=== PATIENT | female | born 1965 | race Caucasian/White ===

== ENCOUNTER 2018-05-25 10:53 | Observation (INO) | payer MEDICAID ==
[2018-05-24 14:43] LABS: BASOPHILS # (AUTO) 0.1 X10'3 (0-0.2); BASOPHILS % (AUTO) 0.8 % (0-1); EOSINOPHILS # (AUTO) 0.2 X10'3 (0-0.9); EOSINOPHILS % (AUTO) 2.3 % (0-6); LYMPHOCYTES # (AUTO) 1.1 X10'3 (1.1-4.8); LYMPHOCYTES % (AUTO) 16.4 % (21-51); MEAN CORPUSCULAR HEMOGLOBIN 27.3 PG (27.0-31.0); MEAN CORPUSCULAR HGB CONC 32.6 g/dL (33.0-36.5); MEAN CORPUSCULAR VOLUME 83.6 FL (78-98); MEAN PLATELET VOLUME 9.4 FL (7.4-10.4); MONOCYTES # (AUTO) 0.6 X10'3 (0-0.9); MONOCYTES % (AUTO) 9.5 % (2-12); NEUTROPHILS # (AUTO) 4.8 X10'3 (1.8-7.7); PRE OP HEMATOCRIT 43.6 % (35.0-45.0); PRE OP HEMOGLOBIN 14.2 g/dL (12.0-16.0); PRE OP PLATELET COUNT 232 X10'3 (140-440); RED BLOOD COUNT 5.21 X10'6 (4.20-5.60); RED CELL DISTRIBUTION WIDTH 15.2 % (11.5-14.5)
[2018-05-24 15:03] LABS: ALBUMIN 3.6 G/DL (3.4-5.0); ALBUMIN/GLOBULIN RATIO 0.9 (1.1-1.5); ALKALINE PHOSPHATASE 89 IU/L (46-116); BLOOD UREA NITROGEN 10 MG/DL (7-18); BUN/CREATININE RATIO 11.1 (6.6-38.0); CALCIUM 9.1 MG/DL (8.5-10.1); CHLORIDE 104 MMOL/L (99-107); PRE OP ALT 43 U/L (30-65); PRE OP ANION GAP 9 (8-16); PRE OP AST 23 U/L (10-37); PRE OP BILIRUB, TOTAL 0.4 MG/DL (0.0-1.0); PRE OP GLUCOSE 123 MG/DL (70-104); PRE OP SODIUM 141 MMOL/L (135-145); TOTAL CARBON DIOXIDE 28.4 MMOL/L (24-32); TOTAL PROTEIN 7.7 G/DL (6.4-8.2); eGFR 66 ML/MIN
[2018-05-24 15:04] LABS: PRE OP PROTIME 10.5 SECONDS (9.0-12.0)
[2018-05-24 15:04] LABS: CLARITY,URINE CLEAR (Clear); COLOR,URINE YELLOW (Yellow); GLUCOSE, URINE NEGATIVE (Neg); KETONES,URINE NEGATIVE (Neg); LEUKOCYTE ESTERASE ,URINE NEGATIVE (Neg); NITRITES, URINE NEGATIVE (Neg); OCCULT BLOOD,URINE LARGE (Neg); PH,URINE 6.5 (4.8-8.0); PROTEIN,URINE TRACE mg/dl (Neg)
[2018-05-24 15:08] LABS: UA COLLECTION TYPE CLN CATCH MIDSTREAM
[2018-05-24 15:18] LABS: MUCUS STRANDS MANY /LPF (Neg); SQUAMOUS EPITHELIAL CELL,UR MANY /LPF (FEW)
[2018-05-24 15:19] LABS: HYALINE CASTS 0-3 /LPF (NEGATIVE)
[2018-05-24 15:20] LABS: BACTERIA,URINE 1+ /HPF (Neg); RBC,URINE 0-2 /HPF (0-2); WBC,URINE 0-4 /HPF (0-4)
[~2018-05-25] VITALS: Ht 177.8 cm; Wt 146.3 kg
[2018-05-25] VITALS (15 sets, daily range): BP systolic 101–168; BP diastolic 62–96
[~2018-05-25 10:53] MED LIST: ALBU18HF2 INH; CLINDAmcin 900mg/NS 50ml IVPB 50 ML IV ONE; DILT180C89 PO; DOXE50CA4 PO; ENAL20TA75 PO; LEVO100T9 PO; PANT-47 PO; famotidine 20mg tablet PO ONE; ringers solution, lacted 1,000 ML IV SCH
[2018-05-25] MEDS ORDERED: NORMAL SALINE IV ONE (12:49)
[2018-05-25] MEDS ORDERED: GENTAMICIN IV ONE (12:49)
[2018-05-25] MEDS ORDERED: sevoflurane 250ml liquid IH ONE (13:02)
[2018-05-25] MEDS ORDERED: fentaNYL /PF 50mcg/ml 5ml ampule ONE (13:04)
[2018-05-25] MEDS ORDERED: midazolam 2 mg/2 ml injection ONE (13:04)
[2018-05-25] MEDS ORDERED: ringers solution, lacted 1,000 ML IV SCH (13:56)
[2018-05-25] MEDS ORDERED: ondansetron/PF 4mg/2ml inj IV PRN ×2 (14:00→14:20)
[2018-05-25] MEDS ORDERED: meperidine/PF 25mg/ml syringe IV PRN ×2 (14:00)
[2018-05-25] MEDS ORDERED: morphine 4 MG/ML inj SYRINge IV PRN ×2 (14:00)
[2018-05-25] MEDS ORDERED: proCHLORperazine 10 MG/2 ml inj IV PRN (14:00)
[2018-05-25] MEDS ORDERED: acetaminophen 1,000mg/100ml IV 100 ML IV ONE (14:15)
[2018-05-25] MEDS: meperidine/PF 25mg/ml syringe IV PRN ×2 (14:16→14:45)
[2018-05-25] MEDS ORDERED: propofol inj 20 ML IV ONE (14:18)
[2018-05-25] MEDS ORDERED: glycopyrrolate 0.2mg/ml inj ONE (14:18)
[2018-05-25] MEDS ORDERED: neostigmine methylsulfate 1 MG/ML 10ml vial ONE (14:18)
[2018-05-25] MEDS ORDERED: rocuronium 10mg/ml inj IV ONE (14:18)
[2018-05-25] MEDS ORDERED: succinylcholine 20mg/ml inj IV ONE (14:18)
[2018-05-25] MEDS ORDERED: LIDOcaine 2% (20mg/ml) 5ml vial ONE (14:18)
[2018-05-25] MEDS ORDERED: dexamethasone sod phosphate 4mg/ml inj. ONE (14:18)
[2018-05-25] MEDS ORDERED: ondansetron/PF 4mg/2ml inj ONE (14:18)
[2018-05-25] MEDS ORDERED: HYDROcodone/acetaminophen 5mg/325mg tablet PO PRN (14:20)
[2018-05-25] MEDS ORDERED: pantoprazole 40mg Tablet.DR PO PRN (14:40)
[2018-05-25] MEDS ORDERED: albuterol 2.5 MG/3 ML nebule NEB PRN (14:50)
--- NOTE | 2018-05-25 15:00 | NUR ---
PATIENT A&OX4, DENIES PAIN, V/S WNL, NEUROVASCULAR CHECKS INTACT, 18G PIV LUE , DRESSING TO ABDOMEN WITH 2 BANDAIDS AND ISLAND DRESSING CDI W/ SCD ON.. PATIENT TAKEN TO SURGICAL WITH ALL BELONGINGS AND HOOKED UP TO MONITORS IN ROOM AND REPORT GIVEN TO FORKLIFT TECHNICIAN WHO HAS TAKEN OVER PATIENT CARE.
--- NOTE | 2018-05-25 15:15 | NUR ---
Patient arrived to floor at 1500. VSS.
[2018-05-25] MEDS: HYDROcodone/acetaminophen 10/325mg tab PO PRN ×2 (15:57→21:42)
--- NOTE | 2018-05-25 16:30 | NUR ---
Received report from TERESE Leiva. Addendum: 05/25/18 at 1828 by Leonie Radfrod RN At 1430
[2018-05-25] MEDS: Potassium Cl inj 20 MEQ in ringers solution, lacted 1,000 ML IV SCH (17:24)
[2018-05-25] MEDS ORDERED: ketorolac tromethamine 15mg/ml inj. IV PRN (17:50)
--- NOTE | 2018-05-25 18:27 | NUR ---
Problems reprioritized. Patient report given, questions answered & plan of care reviewed with TERESE Meadows.
[2018-05-25] MEDS ORDERED: doxepin 25mg capsule PO SCH (21:00)
[2018-05-25] MEDS ORDERED: diltiazem CD 180mg cap (once-daily) PO SCH (21:00)
[2018-05-25] MEDS ORDERED: levoTHYROXINE 100mcg tablet PO SCH (21:00)
[2018-05-26] VITALS: BP 116/56
[2018-05-26] MEDS: HYDROcodone/acetaminophen 10/325mg tab PO PRN (04:45)
[2018-05-26] MEDS: Potassium Cl inj 20 MEQ in ringers solution, lacted 1,000 ML IV SCH (04:45)
--- NOTE | 2018-05-26 06:31 | NUR ---
Problems reprioritized. Patient report given, questions answered & plan of care reviewed with TERESE Durbin.
--- NOTE | 2018-05-26 06:33 | NUR ---
Patient in room [facility]. I have received report from Dori GUDINO and had the opportunity to ask questions and assume patient care.
--- NOTE | 2018-05-26 07:00 | NUR ---
Patient in room [facility]. I have received report from AMY GUDINO and had the opportunity to ask questions and assume patient care.
[2018-05-26] MEDS ORDERED: lisinopril 20mg tablet PO SCH (08:00)
[2018-05-26 08:12] VITALS: BP_SYST 115
[2018-05-26] MEDS ORDERED: HYDR-4383 PO (12:18)
--- NOTE | 2018-05-26 14:34 | NUR ---
PATIENT SEEN BY DR RUELAS IS FOR DISCHARGE. [facility]. ALL DC INSTRUCTIONS GIVEN TO PATIENT AND FAMILY. PAM DELIVERED MEDS. PATIENT APPEARS TO BE IN STABLE CONDITION. DC HOME VIA PRIVATE CAR WITH FAMILY.
== END 2018-05-26 13:29 | disposition home or self-care (01) ==
LOC: PAS 10:53 → SUR 3N 14:18
PROVIDERS: ADMIT Surgery; ATTEND Surgery
DX: K80.10 Calculus of gallbladder with chronic cholecystitis without obstruction (principal)
CPT/HCPCS: 36415; 47562; 80053; 81001; 82948; 85025; 85610; 85730; 93005; 96361; 96374; 96375; G0378; J0131; J0330; J1100; J1580; J1885; J2001; J2175; J2250; J2405; J2704; J2710; J3010; J3480; J7120; A6251; A7000; J3490; J7030

== ENCOUNTER 2021-02-01 08:57 | Emergency (ER) | payer MEDICAID ==
[~2021-02-01] VITALS: Ht 172.7 cm; Wt 104.5 kg
[~2021-02-01 08:57] MED LIST changes: -CLINDAmcin 900mg/NS 50ml IVPB 50 ML IV ONE; +HYDR-4383 PO; -famotidine 20mg tablet PO ONE; -ringers solution, lacted 1,000 ML IV SCH
[2021-02-01 09:09] VITALS: BP 149/99
[2021-02-01] MEDS ORDERED: ondansetron 4mg rapidly disintigrating tab PO ONE (09:45)
--- NOTE | 2021-02-01 10:35 | NUR ---
MEDICATED WITH LOUIE MO. [facility] NOT WORKING ON AMBULANCE BAY AT THIS TIME.
[2021-02-01] MEDS ORDERED: CASIRIVIMAB/IMDEVIMAB inject. 10 ML in normal saline 100ml IV soln 100 ML IV ONE (10:45)
[2021-02-01] MEDS ORDERED: AZIT250T83 PO (10:52)
[2021-02-01] MEDS ORDERED: ONDA8TAB13 PO (11:23)
== END 2021-02-01 12:54 | disposition home or self-care (01) ==
LOC: ER 08:57
DX: U07.1 COVID-19 (principal); R05.9 Cough, unspecified; J44.9 Chronic obstructive pulmonary disease, unspecified; I10 Essential (primary) hypertension; G89.29 Other chronic pain; M79.7 Fibromyalgia; Z87.11 Personal history of peptic ulcer disease; Z87.442 Personal history of urinary calculi; Z59.00 Homelessness unspecified; Z98.84 Bariatric surgery status; Z98.891 History of uterine scar from previous surgery; Z88.0 Allergy status to penicillin; Z79.2 Long term (current) use of antibiotics; Z79.899 Other long term (current) drug therapy
CPT/HCPCS: 71045; 87635; 99284; C9803; M0243; Q0244

== ENCOUNTER 2024-12-07 11:00 | Outpatient (CLI) | payer MEDICAID ==
[~2024-12-07 11:00] MED LIST changes: +ONDA-245 PO
[2024-12-07 11:38] LABS: ABG BASE EXCESS 1.3 mmol/L (-2.0-3.0); ABG HCO3 26.3 mmol/L (21.0-28.0); ABG OXYGEN SATURATION 96.1 % (94.0-98.0); ABG PCO2 (T) 43.0 mmHg (32.0-45.0); ABG PH (T) 7.404 (7.350-7.450); ABG PO2 (T) 81.6 mmHg (83.0-108.0); ALLEN'S TEST POSITIVE; FCOHb 0.5 % (0.5-1.5); FHHb 3.9 % (0.0-5.0); FIO2 21.0 mmHg/%; FMetHb 0.3 % (0.0-1.5); FO2Hb 95.3 % (94.0-98.0); PATIENT TEMPERATURE 37.0; TOTAL HEMOGLOBIN 15.1 G/dl (12.0-16.0)
== END 2024-12-07 23:59 | disposition home or self-care (01) ==
LOC: LAB 11:00
PROVIDERS: ATTEND Student in an Organized Health Care Education/Training Program
DX: E66.01 Morbid (severe) obesity due to excess calories (principal); E66.812 Obesity, class 2; Z68.36 Body mass index [BMI] 36.0-36.9, adult
CPT/HCPCS: 36600; 82803; 85018